=== PATIENT | male | born 1970 | race Caucasian/White ===

== ENCOUNTER 2018-05-06 15:17 | Emergency (ER) | payer OTHER ==
--- NOTE | 2018-05-06 15:52 | UC ---
Lower Extremity/Ankle HPI - HPI Summary HPI Summary: 48 yo male presents with left ankle injury. He tells me that exactly 1 week ago he was walking barefoot on wet grass - his right foot slipped and he twisted his left ankle and landed on it. Was able to get up and ambulate. Had swelling and bruising later that night, but not much pain. Swelling and bruising has persisted. Has not been RICEing or taking anything for pain. Is able to ambulate without assistance. Denies numbness or tingling. - History of Current Complaint Stated Complaint: LEFT ANKLE COMPLAINT Time Seen by Provider: 05/06/18 15:51 Hx Obtained From: Patient Onset/Duration: Sudden Onset Severity Initially: Moderate Severity Currently: Moderate Pain Intensity: 7 Pain Scale Used: 0-10 Numeric Aggravating Factor(s): Standing, Ambulation Alleviating Factor(s): Rest Able to Bear Weight: Yes - Allergies/Home Medications Allergies/Adverse Reactions: Allergies Allergy/AdvReac Type Severity Reaction Status Date / Time No Known Allergies Allergy Verified 05/06/18 15:52 Home Medications: Home Medications Aspirin [Adult Aspirin] 81 mg PO DAILY 05/06/18 [History Confirmed 05/06/18] Atorvastatin* [Lipitor*] 20 mg PO QPM 05/06/18 [History Confirmed 05/06/18] Cetirizine* [ZyrTEC 10 MG TAB*] 10 mg PO DAILY 05/06/18 [History Confirmed 05/06] Escitalopram Oxalate [Lexapro] 20 mg PO BEDTIME 05/06/18 [History Confirmed ] Losartan/Hydrochlorothiazide [Losartan Potassium/Hydroc 50-12.5 mg] 1 tab PO DAILY 05/06/18 [History Confirmed 05/06/18] Omeprazole CAP* [Prilosec CAP* 20 MG] 20 mg PO DAILY 05/06/18 [History Confirmed 05/06/18] amLODIPine TAB* [Norvasc 5 mg TAB*] 5 mg PO DAILY 05/06/18 [History Confirmed ] PMH/Surg Hx/FS Hx/Imm Hx Endocrine History: Dyslipidemia Cardiovascular History: Hypertension Psychological History: Anxiety, Depression - Surgical History Surgical History: Yes Surgery Procedure, Year, and Place: RT SHOULDER SURGERY , [facility] - Family History Known Family History: Positive: None - Social History Occupation: Employed Full-time Lives: Alone Alcohol Use: Daily Substance Use Type: None Smoking Status (MU): Light Every Day Tobacco Smoker Review of Systems Constitutional: Negative Skin: Bruising - Left ankle Respiratory: Negative Cardiovascular: Negative Neurovascular: Negative Musculoskeletal: Other: - Left ankle pain and swelling Neurological: Negative Psychological: Negative All Other Systems Reviewed And Are Negative: Yes Physical Exam - Summary Physical Exam Summary: GENERAL: NAD. WDWN. No pain distress. SKIN: No rashes, sores, lesions, or open wounds. CHEST: No accessory muscle use. Breathing comfortably and in no distress. CV: Pulses intact PT and DP. Cap refill <2seconds MSK: Left ankle: Severe edema and ecchymosis about lateral malleolus. Mild on medial. Mild TTP lateral malleolus and over fibula. FROM. Strength 5/5. Negative talar tilt. No increased laxity. NEURO: Alert. Sensations intact and symmetric B/L LEs PSYCH: Age appropriate behavior. Triage Information Reviewed: Yes Vital Signs: Vital Signs: Temp Pulse Resp BP Pulse Ox 98.3 F 83 18 137/66 98 05/06/18 16:02 05/06/18 16:02 05/06/18 16:02 05/06/18 16:02 05/06/18 16:02 Vital Signs Reviewed: Yes Lower Extremity Course/Dx - Course Course Of Treatment: XR: IMPRESSION: Spiral fracture distal fibula. Findings were discussed with pt. He refused splinting and crutches - would prefer CAM boot. The potential risks were discussed and it was recommended that he be NWB and have splinting until he is able to see Orthopedics. He still declined and requesting the CAM boot. He was placed in a CAM boot and advised to f/u with Orthopedics as soon as possible. - Differential Dx/Diagnosis Provider Diagnoses: Spiral fracture left distal fibula mild displacement Discharge - Sign-Out/Discharge Documenting (check all that apply): Patient Departure All imaging exams completed and their final reports reviewed: Yes - Discharge Plan Condition: Stable Disposition: HOME Patient Education Materials: Ankle Fracture (ED) Referrals: Mikki Castro NP [Primary Care Provider] - Dakota Samano MD [Medical Doctor] - As Soon As Possible Additional Instructions: If you develop a fever, shortness of breath, chest pain, new or worsening symptoms - please call your PCP or go to the ED. 1) Rest, Ice, and elevate your ankle as much as possible 2) Please call Orthopedics at the number below to schedule a follow up appointment in [place] as soon as possible - Billing Disposition and Condition Condition: STABLE Disposition: Home
[2018-05-06 16:07] VITALS: BP 137/66
--- NOTE | 2018-05-06 16:59 | RAD ---
Indication: Fall, ankle injury. 3 views of left ankle demonstrates oblique fracture through the distal fibula. Soft tissue swelling is noted. IMPRESSION: Spiral fracture distal fibula.
== END 2018-05-06 16:52 | disposition home or self-care (01) ==
LOC: UCCORT 15:17
DX: S82.832A Other fracture of upper and lower end of left fibula, initial encounter for closed fracture (principal); W01.0XXA Fall on same level from slipping, tripping and stumbling without subsequent striking against object, initial encounter; Y93.01 Activity, walking, marching and hiking; Y92.9 Unspecified place or not applicable; E78.5 Hyperlipidemia, unspecified; I10 Essential (primary) hypertension; F41.8 Other specified anxiety disorders; F17.210 Nicotine dependence, cigarettes, uncomplicated
CPT/HCPCS: 99202; G0463